=== PATIENT | male | born 1965 | race Two or more races ===

== ENCOUNTER 2018-11-05 17:40 | Emergency (ER) | payer MEDICAID, OTHER ==
[~2018-11-05] VITALS: Ht 172.7 cm; Wt 80.3 kg
[2018-11-05 17:43] VITALS: Ht 172.7 cm; Wt 80.3 kg
[2018-11-05] MEDS ORDERED: SOD CHLORIDE 0.9% 1,000 ML IV STA (17:57)
[2018-11-05] MEDS ORDERED: KETOROLAC 15 MG INJ IV STA (17:57)
[2018-11-05] MEDS ORDERED: ONDANSETRON 4 MG INJ IV STA (17:57)
[2018-11-05] MEDS ORDERED: ONDA4TAB8 PO (19:15)
[2018-11-05] MEDS ORDERED: OXYC-279 PO (19:15)
[2018-11-05] MEDS ORDERED: IBUP-1542 PO (19:15)
[2018-11-05 19:31] VITALS: BP 123/85; PULSE 84; RESP 16
--- NOTE | 2018-11-05 23:10 | ERD ---
ER Documentation Chief Complaint Chief Complaint RT UPPER ABD PAIN SINCE TUESDAY , DENIES N/V/D HPI 53-year-old man complaining of right flank and right lower quadrant abdominal pain beginning about 3 days ago with associated nausea but no vomiting or diarrhea. Patient states the pain is constant and denies hematuria or dysuria, no fevers or chills, no anorexia, no complaints of chest pain or shortness of breath ROS All systems reviewed and are negative except as per history of present illness. Medications Home Meds Active Scripts Ondansetron Hcl* (Zofran*) 4 Mg Tablet, 4 MG PO Q8H PRN for NAUSEA AND/OR VOMITING, #30 TAB Prov:BECKY KELSEY MD 11/05/18 Oxycodone HCl/Acetaminophen (Percocet 5-325 mg Tablet) 1 Each Tablet, 1 EACH PO TID PRN for PAIN LEVEL 6-10, #12 TAB Prov:BECKY KELSEY MD 11/05/18 Ibuprofen* (Motrin*) 600 Mg Tab, 600 MG PO Q8 PRN for PAIN AND/OR INFLAMMATION, #30 TAB Prov:BECKY KELSEY MD 11/05/18 Allergies Allergies: Coded Allergies: No Known Drug Allergy (Verified Allergy, Severe, 11/26/07) PMhx/Soc None History of Surgery: No Anesthesia Reaction: No Hx Neurological Disorder: No Hx Respiratory Disorders: No Hx Cardiac Disorders: No Hx Psychiatric Problems: No Hx Miscellaneous Medical Probl: No Hx Alcohol Use: No Hx Substance Use: No Hx Tobacco Use: No Smoking Status: Never smoker FmHx Family History: No diabetes Physical Exam Vitals Vital Signs Date Temp Pulse Resp B/P (MAP) Pulse Ox O2 O2 Flow FiO2 Time Delivery Rate 11/05/18 99.0 84 16 123/85 99 Room Air 19:31 (98) 11/05/18 79 18 120/83 100 Room Air 19:02 (95) 11/05/18 98.1 97 18 114/65 99 17:43 (81) Physical Exam GENERAL: Well-developed, well-nourished, well-hydrated, in no apparent distress, looks nontoxic in appearance HEENT: Moist mucous membranes, pink conjunctiva, no cervical spine tenderness or step-off deformities, no goiter, no jaundice or icterus, extraocular movements intact without pain. No submandibular induration, and no pharyngeal erythema NEURO: Alert and oriented 3, cranial nerves II through XII intact bilaterally, pupils equal round reactive to light, no focal deficits or facial asymmetry, sensation intact distally Strength 5/5 in upper and lower extremities bilaterally CARDIAC: Regular rate and rhythm, no murmurs rubs or gallops LUNGS: Clear bilaterally no wheezing crackles or stridor ABDOMEN: Soft nontender, no guarding, no rigidity, no rebound, no psoas sign no obturator sign. Normoactive bowel sounds SKIN: Warm and dry to touch, no abrasions, contusions, or hematomas, no la cerations, no ecchymosis, no target lesions, and without ulcers EXTREMITIES: No clubbing cyanosis or edema, calves are bilaterally symmetrical, no Homans sign, no popliteal cord sign. Distal pulses equal and bilateral PSYCH: Normal affect without agitation or irritability Result Diagram: 11/05/185 11/05/181824 Results 24 hrs Laboratory Tests Test 11/05/18 18:25 White Blood Count 10.2 10^3/ul Red Blood Count 5.09 10^6/ul Hemoglobin 14.4 g/dl Hematocrit 44.6 % Mean Corpuscular Volume 87.6 fl Mean Corpuscular Hemoglobin 28.3 pg Mean Corpuscular Hemoglobin Concent 32.3 g/dl Red Cell Distribution Width 13.6 % Platelet Count 201 10^3/UL Mean Platelet Volume 11.0 fl Immature Granulocytes % 0.300 % Neutrophils % 71.4 % Lymphocytes % 16.5 % Monocytes % 10.6 % Eosinophils % 0.9 % Basophils % 0.3 % Nucleated Red Blood Cells % 0.0 /100WBC Immature Granulocytes # 0.030 10^3/ul Neutrophils # 7.3 10^3/ul Lymphocytes # 1.7 10^3/ul Monocytes # 1.1 10^3/ul Eosinophils # 0.1 10^3/ul Basophils # 0.0 10^3/ul Nucleated Red Blood Cells # 0.0 10^3/ul Prothrombin Time 12.3 Sec Prothrombin Time Ratio 1.0 INR International Normalized Ratio 0.90 Activated Partial Thromboplast Time 25.8 Sec Sodium Level 141 mmol/L Potassium Level 3.9 mmol/L Chloride Level 107 mmol/L Carbon Dioxide Level 24 mmol/L Anion Gap 10 Blood Urea Nitrogen 22 mg/dl Creatinine 1.20 mg/dl Est Glomerular Filtrat Rate mL/min > 60 mL/min Glucose Level 120 mg/dl Calcium Level 9.2 mg/dl Total Bilirubin 0.3 mg/dl Direct Bilirubin 0.00 mg/dl Indirect Bilirubin 0.3 mg/dl Aspartate Amino Transf (AST/SGOT) 25 IU/L Alanine Aminotransferase (ALT/SGPT) 29 IU/L Alkaline Phosphatase 109 IU/L Total Protein 8.1 g/dl Albumin 4.3 g/dl Globulin 3.80 g/dl Albumin/Globulin Ratio 1.13 Lipase 68 U/L Current Medications Medications Dose Sig/Wilber Start Time Status Last (Trade) Ordered Route PRN Stop Time Admin Dose Reason Admin Sodium 1,000 ml @ Q1H STAT 11/05/18 DC 11/05/18 Chloride 1,000 mls/hr IV 17:57 18:26 11/05/18 18:56 Ondansetron 4 mg ONCE STAT 11/05/18 DC 11/05/18 HCl (Zofran IV 17:57 18:26 Inj) 11/05/18 17:59 Ketorolac 15 mg ONCE STAT 11/05/18 DC 11/05/18 Tromethamine IV 17:57 18:26 (Toradol) 11/05/18 17:59 Procedures/MDM IV line was established patient was placed on cardiac cath technician rhythm strip revealed a sinus rhythm at about 80 bpm with upright P and T waves. Patient was afebrile I administered 1 L normal saline IV, Toradol 15 mg IV, Zofran [address] scan revealed a distal right ureter stone, no appendicitis, please refer to radiologist dictation for full report. CBC and electrolytes are normal, liver function tests were normal Differential diagnoses considered, included but not limited to acute coronary syndrome, pulmonary embolism, aortic dissection, abdominal aortic aneurysm, sepsis, stroke, meningitis, encephalitis, pneumonia, appendicitis, cholecystitis, bowel obstruction, pyelonephritis, nephrolithiasis, cystitis, as well as metabolic, hematologic, and electrolyte abnormalities. As well as abscess, cellulitis, fractures, and dislocations. Patient feels much better at this time, and vital signs are normal, symptoms have improved. I did give strict instructions to return to the ED if symptoms continue or worsen, patient will otherwise follow-up with primary care physician. Patient understood instructions and agreed to plan. Disclaimer: Inadvertent spelling and grammatical errors are likely due to EHR/d ictation software use and do not reflect on the overall quality of patient care. Also, please note that the electronic time recorded on this note does not necessarily reflect the actual time of the patient encounter. Departure Diagnosis: Primary Impression: Kidney calculus Condition: Good Patient Instructions: Kidney Stone W/ Colic BECKY KELSEY MD November 05, 2018 23:10
== END 2018-11-05 19:34 | disposition home or self-care (01) ==
LOC: E/R 17:40
DX: N20.0 Calculus of kidney (principal)
CPT/HCPCS: 36415; 74176; 80053; 83690; 85025; 85610; 85730; 96374; 96375; 99285; J1885; J2405; J7030